=== PATIENT | male | born 1965 | race Caucasian/White ===

== ENCOUNTER 2018-05-26 02:08 | Observation (INO) | payer BC ==
[~2018-05-26] VITALS: Ht 177.8 cm; Wt 98.9 kg
--- NOTE | ~2018-05-26 | CN ---
PATIENT NAME:ART MCGRAW MEDICAL RECORD: [id number] : 69 LOCATION:D. D.2111 ADMIT DATE: 05/26/18 ACCOUNT: [id number] CONSULTING PHYSICIAN: JOANNE RIOS MD REFERRING PHYSICIAN: LENNIE WHITESIDE MD DATE OF CONSULTATION: 05/26/2018 ADMITTING DIAGNOSES: 1. Chest pain. 2. Hyperlipidemia. HISTORY OF PRESENT ILLNESS: This is a gentleman who had approximately 45 minutes of chest discomfort yesterday, came on him [place]. He had eaten foods he usually does not eat. It did start in his epigastrium, moved to his chest area. It resolved spontaneously. He presented to the Emergency Room. His troponins are normal. His EKGs are normal. He has not had any further episodes of the chest discomfort. He was seen at [facility] within the past 2 weeks with a stress Cardiolite that was normal. This was done just secondary to a family history of coronary artery disease. He was not having any symptoms at that time. PHYSICAL EXAMINATION: GENERAL APPEARANCE: Well-nourished, well-developed, appears stated age. Level of distress, comfortable. PSYCHIATRIC: Mental status, alert, normal affect. Orientation, oriented to time, place and person. EYES: Lids and conjunctiva, noninjected. No discharge, no pallor. ENT: Lips, teeth, gums, normal dentition. Oropharynx, no cyanosis, no pallor. NECK: Carotid arteries, bilateral normal upstroke, no bruits, no thrills. JUGULAR VEINS: No jugular venous pressure or distention. CERVICAL LYMPH NODES: Nontender, nonenlarged. THYROID: Not enlarged. Nontender. No nodules. LUNGS: Respiratory effort, unlabored. CHEST: Normal curvature. No thoracic deformity. No chest wall tenderness. Percussion, resonant. Auscultation, clear. No wheezes, no rales, no rhonchi. CARDIOVASCULAR: Precordial exam, nondisplaced. No heaves or pericardial thrills. Rate and rhythm, regular. Heart sounds, normal S1, normal S2. No S3, no gallop, no rub. Systolic murmur, not heard. Diastolic murmur, not heard. EXTREMITIES: No cyanosis, no edema. Peripheral pulses, full and equal in all extremities, except as noted. No bruits appreciated. ABDOMEN: Soft, nondistended. Normal aorta. No bruit. Nontender. No masses. Liver, nontender, no hepatomegaly. Spleen, nontender, no splenomegaly. MUSCULOSKELETAL: No joint tenderness. No joint swelling. No erythema. NEUROLOGICAL: Normal gait, normal strength, normal tone. SKIN: Warm and dry. REVIEW OF SYSTEMS: The patient reports easy bruising but reports no swollen glands. The patient reports no fever, no night sweats, no significant weight gain, no significant weight loss. No significant exercise tolerance. The patient reports no dry eyes, no irritation, no vision change. Patient reports no difficulty hearing and no ear pain. Patient reports no frequent nose bleeds or nose and sinus problems. Patient reports on arm pain on exertion. No shortness of breath while lying down. No history of heart murmur. Patient reports no cough, no wheezing or coughing up blood. Patient reports no CONSULT REPORT [id number] ART MCGRAW abdominal pain, no vomiting. Normal appetite. No diarrhea and not vomiting blood. No nausea and no constipation. Patient reports no incontinence. No difficulty urinating. No hematuria. No increased frequency. Patient reports no muscle aches. No weakness, no arthralgias, no back pain. No swelling of the extremities. Patient reports no abnormal mole, no jaundice, no rashes. Reports no loss of consciousness. No weakness and no numbness. No seizures, dizziness, or headaches. The patient reports no depression, no sleep disturbance, feeling safe in a relationship and no alcohol abuse. Patient reports on fatigue. Reports no runny nose or sinus pressure. No itching, no hives, and no frequent sneezing. OVERALL IMPRESSION: Chest discomfort, most likely GI in etiology. Normal stress Cardiolite within the past month. Normal EKG, normal troponin. At this time, no other cardiac workup treatment needs to be undertaken. TRANSINT:[id number] Voice Confirmation ID: [id number] DOCUMENT ID: [id number] JOANNE RIOS MD at 1325 CC: [id number] DICTATION DATE: 05/26/18 1140 WARES SORTER: 05/26/18 1320 DIS IN 05/26/18 [place] [address]
[~2018-05-26 02:08] MED LIST: GLUCOPHAGE500 MG PO; HYDROCODONE-APA1 TAB PO
[2018-05-26 03:01] LABS: HEMOGLOBIN 13.6 g/dL (13.5-17.5); LYMPHOCYTES 22.8 % (15-50); MCH 29.4 pg (26.0-34.0); MCV 86.4 fL (80.0-100.0); NEUTROPHILS 64.6 % (40-80); PLATELET COUNT 227 10x3/uL (130-400); RBC 4.63 10x6/uL (4.20-6.10); RDW 13.3 % (11.5-14.5); WBC 9.2 10x3/uL (4.8-10.8)
[2018-05-26 03:18] LABS: ALBUMIN 3.7 g/dL (3.4-5.0); ALKALINE PHOSPHATASE 56 U/L (46-116); ALT (SGPT) 32 U/L (10-68); BILIRUBIN - TOTAL 0.55 mg/dL (0.2-1.3); CALC OSMOLALITY 282 mosm/kg (275-300); CALCIUM 8.5 mg/dL (8.5-10.1); CHLORIDE - SERUM 103 mmol/L (98-107); CREATININE - SERUM 0.9 mg/dL (0.6-1.3); GLUCOSE 146 mg/dL (74-106); POTASSIUM - SERUM 3.4 mmol/L (3.5-5.1); PROTEIN - SERUM 7.2 g/dL (6.4-8.2); SODIUM 140 mmol/L (136-145); UREA NITROGEN 14 mg/dL (7-18); eGFR NON AFRICAN AMERICAN > 90 mL/min (90-120)
[2018-05-26 03:30] VITALS: BP 105/57
[2018-05-26 03:37] LABS: CREATINE KINASE 227 UL (21-232); MAGNESIUM - SERUM 1.8 mg/dL (1.8-2.4)
[2018-05-26 03:38] LABS: TROPONIN-I < 0.017 ng/mL (0.000-0.060)
[2018-05-26 03:39] LABS: CKMB 1.5 U/L (0.0-3.6)
[2018-05-26] MEDS ORDERED: CRESTOR10 MG PO (04:25)
[2018-05-26] MEDS ORDERED: ZOLOFT50 MG PO (04:26)
[2018-05-26 04:33] VITALS: Ht 177.8 cm; Wt 98.9 kg
[2018-05-26 06:29] VITALS: BP 127/72
[2018-05-26 08:53] VITALS: BP 126/70
[2018-05-26 10:27] LABS: CKMB 1.2 U/L (0.0-3.6); CREATINE KINASE 184 UL (21-232)
[2018-05-26 10:29] LABS: TROPONIN-I < 0.017 ng/mL (0.000-0.060)
[2018-05-26 12:02] VITALS: BP 135/78
== END 2018-05-26 15:17 | disposition home or self-care (01) ==
LOC: D.ER 02:08 → D.M2 03:52 → OBSVTIME 03:52 → D.M2 15:17
PROVIDERS: Emergency Medicine; Internal Medicine Interventional Cardiology
DX: R07.9 Chest pain, unspecified (principal); E11.9 Type 2 diabetes mellitus without complications; E78.5 Hyperlipidemia, unspecified

== ENCOUNTER → 2018-11-06 07:53 | Outpatient (CLI) | payer BC ==
[~2018-11-06 07:53] MED LIST changes: +CRESTOR10 MG PO; +ZOLOFT50 MG PO
== END | disposition home or self-care (01) ==
LOC: D.MRI 07:53
DX: S76.192A Other specified injury of left quadriceps muscle, fascia and tendon, initial encounter (principal); X58.XXXA Exposure to other specified factors, initial encounter